=== PATIENT | male | born 1980 | race African-American/Black ===

== ENCOUNTER 2019-05-14 12:39 | Emergency (ER) | payer OTHER ==
[~2019-05-14] VITALS: Ht 190.5 cm; Wt 100.4 kg
--- NOTE | 2019-05-14 12:50 | NUR ---
BIB [facility] FEELING ANXIOUS S/P POSSIBLE DRUG USE. PATIENT ANXIOUS AND RESTLESS, ATTACHED TO THE CRM ADMINISTRATOR, SITTER AT BEDSIDE, SAFE ENVIRONMENT PROVIDED. NEEDS ATTENDED. WILL MONITOR
[2019-05-14] MEDS ORDERED: HALOPERIDOL LACTATE INJ 5 MG/ML VIAL IM ONE (13:00)
[2019-05-14] MEDS ORDERED: IV NS 0.9% 1,000 ML BAG IV ONE (13:00)
[2019-05-14] MEDS ORDERED: LORAZEPAM INJ 2 MG/ML VIAL IM ONE (13:00)
[2019-05-14] MEDS ORDERED: HALOPERIDOL LACTATE INJ 5 MG/ML VIAL ONE (13:16)
[2019-05-14] MEDS ORDERED: LORAZEPAM INJ 2 MG/ML VIAL ONE (13:17)
[2019-05-14 14:59] LABS: BASOPHILS % (AUTO) 0.3 % (0.0-2.0); EOSINOPHILS % (AUTO) 0.1 % (0.0-6.0); HEMATOCRIT 45 % (39-51); HEMOGLOBIN 15.2 g/dL (13.5-17.5); LYMPHOCYTES # (AUTO) 2.2 /CMM (0.8-4.8); LYMPHOCYTES % (AUTO) 23.6 % (20.0-44.0); MEAN CORPUSCULAR HGB CONC 34 g/dl (31.0-36.0); MEAN CORPUSCULAR VOLUME 86 fL (80-96); MONOCYTES # (AUTO) 1.4 /CMM (0.1-1.30); MONOCYTES % (AUTO) 15.4 % (2.0-12.0); NEUTROPHILS # (AUTO) 5.5 /CMM (1.8-8.9); NEUTROPHILS % (AUTO) 60.6 % (43.0-81.0); PLATELET COUNT (AUTO) 226 /CMM (150-450); RED BLOOD CELL COUNT(AUTO) 5.22 MIL/uL (4.5-6.0); WHITE BLOOD COUNT (AUTO) 9.1 K/uL (4.3-11.0)
[2019-05-14] MEDS ORDERED: IV D5 LR 1,000 ML IV ONE (15:00)
[2019-05-14] MEDS ORDERED: Thiamine 100 MG in IV D5W 50 ML IV SCH (15:00)
--- NOTE | 2019-05-14 15:00 | NUR ---
PATIENT CALM AND COOPERATIVE.
[2019-05-14 15:06] LABS: CALCIUM, SERUM 9.6 mg/dL (8.5-10.1); CARBON DIOXIDE 23 mmol/L (21-32); CHLORIDE 105 mmol/L (98-107); CREATININE 1.1 mg/dL (0.6-1.3); GLUCOSE 91 mg/dL (74-106); SODIUM SERUM 140 mmol/L (136-145); UREA NITROGEN, BLOOD 16 mg/dL (7-18)
[2019-05-14 15:12] LABS: ALANINE AMINOTRANSFERASE 27 U/L (12-78); ALBUMIN 4.2 g/dL (3.4-5.0); ALCOHOL, BLOOD < 3 mg/dL (0-0); ALKALINE PHOSPHATASE 68 U/L (46-116); ASPARTATE AMINOTRANSFERASE 28 U/L (15-37); BILIRUBIN,DIRECT 0.3 mg/dL (0.0-0.2); BILIRUBIN,TOTAL 1.2 mg/dL (0.2-1.0); TOTAL PROTEIN, SERUM 8.3 g/dL (6.4-8.2)
--- NOTE | 2019-05-14 15:30 | NUR ---
PATIENT REFUSED TO GIVE URINE AT THIS TIME. EXPLAINED RISKS AND BENEFITS.
[2019-05-14 17:50] VITALS: BP 100/60
--- NOTE | 2019-05-14 17:50 | NUR ---
PATIENT STATED HE FEELS BETTER, HE WANTS TO GO HOME. IV removed. Catheter intact and site benign. Pressure and 4x4 applied to site. No bleeding noted.
--- NOTE | 2019-05-14 18:05 | NUR ---
Patient ambulatory with a steady gait. IV removed. Catheter intact and site benign. Pressure and 4x4 applied to site. No bleeding noted.Patient discharged to sober living facility in stable condition. Written and verbal after care instructions given. Patient verbalizes understanding of instruction.
== END 2019-05-14 18:05 | disposition home or self-care (01) ==
LOC: ER 12:41
DX: R45.1 Restlessness and agitation (principal); T50.905A Adverse effect of unspecified drugs, medicaments and biological substances, initial encounter; R00.2 Palpitations; E86.0 Dehydration; F20.9 Schizophrenia, unspecified; F43.10 Post-traumatic stress disorder, unspecified; R00.0 Tachycardia, unspecified; F10.10 Alcohol abuse, uncomplicated; F17.210 Nicotine dependence, cigarettes, uncomplicated; F19.10 Other psychoactive substance abuse, uncomplicated; H57.04 Mydriasis; Y90.0 Blood alcohol level of less than 20 mg/100 ml; Y92.89 Other specified places as the place of occurrence of the external cause
CPT/HCPCS: 36415; 71045; 80048; 80076; 80307; 84484; 85025; 93005; 96361; 96365; 96372 ×2; 99284; 99406; J1630; J2060; J3411; J3490 ×2; J7030; J7060; G0480

== ENCOUNTER 2019-11-01 13:52 | Emergency (ER) | payer OTHER ==
[~2019-11-01] VITALS: Ht 180.3 cm; Wt 112.0 kg
--- NOTE | 2019-11-01 14:00 | NUR ---
PT PRESENTED TO THE ER WITH A C/O WORSENING LLQ ABD PAIN WITH N/V X 9 MONTHS. PT AMBULATED TO THE BATHROOM AND A URINE SAMPLE WAS OBTAINED. SAMPLE WAS SENT TO THE LAB. PT THEN AMBULATED TO ER 14 AND IS AWAITING EVAL BY .
--- NOTE | 2019-11-01 14:05 | NUR ---
PT STATED THAT HE IS HAVING BURNING AND SHARP PAIN IN LLQ OF ABD. PT STATED THAT HE WAS DX 9 MONTHS AGO WITH [facility] AND DID NOT TAKE THE ANTIBIOTIC HE WAS PRESCRIBED. PT IS WORRIED THAT HE HAS AN ULCER AND OCCASIONALLY OVER THE LAST 9 MONTHS HE STATED THAT HE HAD SOME BLOODY STOOLS. PT DOES NOT CURRENTLY HAVE BLOOD IN HIS STOOLS. PT IS REQUESTING A CT OF HIS ABD AND PAIN MEDICATION. PT HAS BP CUFF IN PLACE AND WILL CONTINUE TO BE MONITORED.
--- NOTE | 2019-11-01 14:30 | NUR ---
PT STATED THAT HE HAS BEEN SOBER FOR 90 DAYS AND IS CURRENTLY LIVING IN A SOBER LIVING FACILITY.
--- NOTE | 2019-11-01 14:34 | NUR ---
18G IV STARTED IN [facility]. BLOOD WAS DRAWN AND SENT TO LAB WITH [facility].
[2019-11-01 14:35] LABS: APPEARANCE,URINE Clear (CLEAR); BILIRUBIN,URINE Negative (NEGATIVE); BLOOD, URINE Negative Ery/uL (NEGATIVE); COLOR,URINE Yellow (YELLOW); KETONES,URINE Negative (NEGATIVE); LEUKOCYTE ESTERASE ,URINE Negative (NEGATIVE); NITRITE, URINE Negative (NEGATIVE); PH,URINE 7.5 (5.0-8.0); PROTEIN,URINE Negative (NEGATIVE); UGLUCOSE Negative (NEGATIVE); UROBILINOGEN,URINE 0.2 EU/dL (0.2)
[2019-11-01 14:37] LABS: BASOPHILS # (AUTO) 0.1 /CMM (0.0-0.2); BASOPHILS % (AUTO) 0.6 % (0.0-2.0); EOSINOPHILS % (AUTO) 1.1 % (0.0-6.0); HEMATOCRIT 46 % (39-51); HEMOGLOBIN 15.7 g/dL (13.5-17.5); MEAN CORPUSCULAR HGB CONC 34 g/dl (31.0-36.0); MEAN CORPUSCULAR VOLUME 85 fL (80-96); MONOCYTES % (AUTO) 11.2 % (2.0-12.0); NEUTROPHILS # (AUTO) 4.1 /CMM (1.8-8.9); NEUTROPHILS % (AUTO) 44.1 % (43.0-81.0); PLATELET COUNT (AUTO) 231 /CMM (150-450); RED BLOOD CELL COUNT(AUTO) 5.45 MIL/uL (4.5-6.0); WHITE BLOOD COUNT (AUTO) 9.3 K/uL (4.3-11.0)
[2019-11-01 14:45] LABS: CALCIUM, SERUM 9.7 mg/dL (8.5-10.1); POTASSIUM 4.1 mmol/L (3.5-5.1)
[2019-11-01 14:56] LABS: BILIRUBIN,DIRECT 0.1 mg/dL (0.0-0.2); BILIRUBIN,TOTAL 0.3 mg/dL (0.2-1.0); TOTAL PROTEIN, SERUM 7.8 g/dL (6.4-8.2)
[2019-11-01] MEDS ORDERED: KETOROLAC TROMETHAMINE 15 MG/ML VIAL ONE (15:10)
--- NOTE | 2019-11-01 15:17 | NUR ---
IV removed. Catheter intact and site benign. Pressure and 4x4 applied to site. No bleeding noted. Patient discharged to home in stable condition. Written and verbal after care instructions given. Patient verbalizes understanding of instruction AND RX. PT AMBULATED OUT WITH A STEADY GAIT. PT REC'D A COPY OF HIS LABS. VSS.
[2019-11-01 15:18] VITALS: BP 151/76
[2019-11-01] MEDS ORDERED: KETOROLAC TROMETHAMINE INJ 30 MG/ML VIAL IV ONE (15:30)
== END 2019-11-01 15:18 | disposition home or self-care (01) ==
LOC: ER 13:56
DX: G89.29 Other chronic pain (principal); R10.12 Left upper quadrant pain; R10.32 Left lower quadrant pain; F20.9 Schizophrenia, unspecified; F43.10 Post-traumatic stress disorder, unspecified; F17.200 Nicotine dependence, unspecified, uncomplicated; Z88.0 Allergy status to penicillin
CPT/HCPCS: 36415; 80048; 80076; 80305; 80307; 81001; 83690; 85025; 96374; 99283; J1885; 81000-TC; G0480

== ENCOUNTER 2019-11-06 14:27 | Emergency (ER) | payer OTHER ==
[~2019-11-06] VITALS: Ht 180.3 cm; Wt 108.9 kg
--- NOTE | 2019-11-06 14:30 | NUR ---
came in for c/o cough and congestion x 3 days, "it hurt's when i breath", to er bed 9, hooked to monitor, dr jones at bedside
[2019-11-06] MEDS ORDERED: IPRATROPIUM NEB FS 0.5 MG/2.5 ML AMPUL.NEB ONE (14:54)
[2019-11-06] MEDS ORDERED: ALBUTEROL FS 2.5 MG/3 ML VIAL.NEB ONE (14:54)
--- NOTE | 2019-11-06 14:55 | NUR ---
RT AT BEDSIDE FOR BREATHING TX
[2019-11-06] MEDS ORDERED: ALBUTEROL FS 2.5 MG/3 ML VIAL.NEB NEB ONE (15:00)
[2019-11-06] MEDS ORDERED: IPRATROPIUM NEB FS 0.5 MG/2.5 ML AMPUL.NEB NEB ONE (15:00)
[2019-11-06] MEDS ORDERED: predniSONE 20 MG TABLET ONE (15:10)
[2019-11-06] MEDS ORDERED: predniSONE 20 MG TABLET PO ONE (15:30)
--- NOTE | 2019-11-06 15:33 | NUR ---
Patient discharged to home in stable condition. Written and verbal after care instructions given. Patient verbalizes understanding of instruction.
[2019-11-06 15:35] VITALS: BP 151/99
== END 2019-11-06 15:35 | disposition home or self-care (01) ==
LOC: ER 14:27
DX: J45.901 Unspecified asthma with (acute) exacerbation (principal); F17.200 Nicotine dependence, unspecified, uncomplicated; I10 Essential (primary) hypertension; F20.9 Schizophrenia, unspecified; F43.10 Post-traumatic stress disorder, unspecified; Z88.0 Allergy status to penicillin
CPT/HCPCS: 71045; 94640; 99283; 99406; J7512

== ENCOUNTER 2019-11-29 16:58 | Emergency (ER) | payer OTHER ==
[~2019-11-29] VITALS: Ht 180.3 cm; Wt 112.5 kg
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
--- NOTE | 2019-11-29 17:40 | NUR ---
SEEN AND EVALUATED BY BARBRA DAY
[2019-11-29] MEDS ORDERED: HYDROCODONE/APAP 5/325MG TABLET ONE (17:47)
--- NOTE | 2019-11-29 17:51 | NUR ---
EMT I/85 AT BEDSIDE FOR XRAY.
--- NOTE | 2019-11-29 17:51 | NUR ---
ICE COMPRESS APPLIED.
[2019-11-29] MEDS ORDERED: HYDROCODONE/APAP 5/325MG TABLET PO ONE (18:00)
--- NOTE | 2019-11-29 18:34 | NUR ---
Applied splint on left index finger, Shabbir WASSERMAN at bedside explaining the fracture.
--- NOTE | 2019-11-29 18:45 | NUR ---
Patient discharged to home in stable condition. Written and verbal after care instructions given. Patient verbalizes understanding of instruction.
[2019-11-29 18:48] VITALS: BP 150/87
== END 2019-11-29 18:49 | disposition home or self-care (01) ==
LOC: ER 17:02
DX: S62.611A Displaced fracture of proximal phalanx of left index finger, initial encounter for closed fracture (principal); I10 Essential (primary) hypertension; Z88.0 Allergy status to penicillin; W20.8XXA Other cause of strike by thrown, projected or falling object, initial encounter; Y93.89 Activity, other specified; Y92.098 Other place in other non-institutional residence as the place of occurrence of the external cause; Y99.8 Other external cause status
CPT/HCPCS: 73130-TC

== ENCOUNTER 2019-12-05 15:19 | Emergency (ER) | payer OTHER ==
[~2019-12-05] VITALS: Ht 177.8 cm; Wt 97.5 kg
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
[2019-12-05] MEDS ORDERED: HYDROCODONE/APAP 5/325MG 1 EACH TABLET ONE (15:51)
[2019-12-05] MEDS ORDERED: HYDROCODONE/APAP 5/325MG 1 EACH TABLET PO ONE (16:00)
[2019-12-05 16:43] VITALS: BP 128/87
--- NOTE | 2019-12-05 16:43 | NUR ---
Patient discharged to home in stable condition. Written and verbal after care instructions given. Patient verbalizes understanding of instruction.
== END 2019-12-05 16:43 | disposition home or self-care (01) ==
LOC: ER 15:22
DX: S62.617A Displaced fracture of proximal phalanx of left little finger, initial encounter for closed fracture (principal); I10 Essential (primary) hypertension; F20.9 Schizophrenia, unspecified; F43.10 Post-traumatic stress disorder, unspecified; F17.200 Nicotine dependence, unspecified, uncomplicated; Z88.0 Allergy status to penicillin; W01.0XXA Fall on same level from slipping, tripping and stumbling without subsequent striking against object, initial encounter; Y93.89 Activity, other specified; Y92.89 Other specified places as the place of occurrence of the external cause; Y99.8 Other external cause status
CPT/HCPCS: 73130-TC

== ENCOUNTER 2019-12-16 10:34 | Emergency (ER) | payer OTHER ==
[~2019-12-16] VITALS: Ht 185.4 cm; Wt 113.4 kg
--- NOTE | 2019-12-16 10:41 | NUR ---
Came in for laceration to L thumb s/p fall in shower this morning, to ER 2, Dr dunn at bedside
[2019-12-16] MEDS ORDERED: TDAP [DIPH/PERTUSSIS/TET] 0.5 ML VIAL IM ONE ×2 (10:57→11:00)
--- NOTE | 2019-12-16 11:56 | NUR ---
Patient discharged to home in stable condition. Written and verbal after care instructions given. Patient verbalizes understanding of instruction.
[2019-12-16 11:58] VITALS: BP 142/68
== END 2019-12-16 12:02 | disposition home or self-care (01) ==
LOC: ER 10:34
DX: S62.311A Displaced fracture of base of second metacarpal bone, left hand, initial encounter for closed fracture (principal); S61.012A Laceration without foreign body of left thumb without damage to nail, initial encounter; I10 Essential (primary) hypertension; F20.9 Schizophrenia, unspecified; F43.10 Post-traumatic stress disorder, unspecified; F17.200 Nicotine dependence, unspecified, uncomplicated; Z88.0 Allergy status to penicillin; W18.39XA Other fall on same level, initial encounter; Y93.E1 Activity, personal bathing and showering; Y92.89 Other specified places as the place of occurrence of the external cause; Y99.8 Other external cause status
CPT/HCPCS: 29130; 73140 ×2; 90471; 90715; 99283; A6403

== ENCOUNTER 2023-09-27 17:53 | Emergency (ER) | payer OTHER ==
[~2023-09-27] VITALS: Ht 180.3 cm; Wt 99.8 kg
[2023-09-27] MEDS ORDERED: IV NS 0.9% 1,000 ML BAG IV ONE (19:30)
[2023-09-27] MEDS ORDERED: FAMOTIDINE/PF INJ 20 MG/2 ML VIAL IV ONE ×2 (19:30→19:37)
[2023-09-27] MEDS ORDERED: KETOROLAC TROMETHAMINE 15 MG/ML VIAL IV ONE (19:30)
[2023-09-27] MEDS ORDERED: MAG HYDROX/AL HYDROX/SIMETH 30 ML UDC PO ONE (19:30)
[2023-09-27] MEDS ORDERED: KETOROLAC TROMETHAMINE 15 MG/ML VIAL ONE (19:36)
[2023-09-27] MEDS ORDERED: MAG HYDROX/AL HYDROX/SIMETH 30 ML UDC ONE (19:37)
[2023-09-27 19:41] LABS: CALCIUM, SERUM 9.1 mg/dL (8.5-10.1); POTASSIUM 3.6 mmol/L (3.5-5.1)
[2023-09-27 19:45] LABS: APPEARANCE,URINE CLEAR (CLEAR); BILIRUBIN,URINE NEGATIVE (NEGATIVE); BLOOD, URINE NEGATIVE Ery/uL (NEGATIVE); COLOR,URINE YELLOW (YELLOW); KETONES,URINE NEGATIVE (NEGATIVE); LEUKOCYTE ESTERASE ,URINE NEGATIVE (NEGATIVE); NITRITE, URINE NEGATIVE (NEGATIVE); PH,URINE 6.5 (5.0-8.0); PROTEIN,URINE NEGATIVE (NEGATIVE); UGLUCOSE NEGATIVE (NEGATIVE)
[2023-09-27 19:47] LABS: ALBUMIN 3.9 g/dL (3.4-5.0); BASOPHILS % (AUTO) 0.2 % (0.0-2.0); BILIRUBIN,DIRECT 0.1 mg/dL (0.0-0.2); BILIRUBIN,TOTAL 0.3 mg/dL (0.2-1.0); EOSINOPHILS # (AUTO) 0.1 K/uL (0.0-0.7); EOSINOPHILS % (AUTO) 0.7 % (0.0-6.0); HEMATOCRIT 47 % (39-51); HEMOGLOBIN 15.7 g/dL (13.5-17.5); LYMPHOCYTES # (AUTO) 3.8 K/uL (0.8-4.8); LYMPHOCYTES % (AUTO) 46.7 % (20.0-44.0); MEAN CORPUSCULAR HEMOGLOBIN 29 PG (26.0-33.0); MEAN CORPUSCULAR HGB CONC 33 g/dl (31.0-36.0); MEAN CORPUSCULAR VOLUME 87 fL (80-96); MONOCYTES # (AUTO) 0.8 K/uL (0.1-1.30); MONOCYTES % (AUTO) 9.5 % (2.0-12.0); NEUTROPHILS # (AUTO) 3.5 K/uL (1.8-8.9); NEUTROPHILS % (AUTO) 42.9 % (43.0-81.0); PLATELET COUNT (AUTO) 229 K/uL (150-450); RED BLOOD CELL COUNT(AUTO) 5.39 MIL/uL (4.5-6.0); RED CELL DISTRIBUTION WIDTH 14.8 % (11.5-15.0); TOTAL PROTEIN, SERUM 7.9 g/dL (6.4-8.2); WHITE BLOOD COUNT (AUTO) 8.1 K/uL (4.3-11.0)
[2023-09-27] MEDS ORDERED: ONDA4TAB5 PO ×2 (20:13→20:33)
[2023-09-27] MEDS ORDERED: FAMO40TA7 PO ×2 (20:13→20:33)
[2023-09-27 20:36] VITALS: BP 128/80; TEMP 98; O2SAT 98
== END 2023-09-27 20:37 | disposition home or self-care (01) ==
LOC: ER 17:53
DX: R10.12 Left upper quadrant pain (principal); I10 Essential (primary) hypertension; F20.9 Schizophrenia, unspecified; Z87.442 Personal history of urinary calculi; Z88.0 Allergy status to penicillin
CPT/HCPCS: 99285; 74176; 96374; 96361; 96375; 85025; 80048; 83690; 80076; 81003; 36415; J3490; J7030 ×2; J1885

== ENCOUNTER 2023-10-06 14:27 | Emergency (ER) | payer OTHER ==
[~2023-10-06] VITALS: Ht 180.3 cm; Wt 99.8 kg
[~2023-10-06 14:27] MED LIST: FAMO40TA7 PO; ONDA4TAB5 PO
[2023-10-06] MEDS ORDERED: CYCLOBENZAPRINE 10 MG TABLET ONE (15:07)
[2023-10-06] MEDS ORDERED: HYDROCODONE/APAP 10/325MG TABLET ONE (15:07)
[2023-10-06] MEDS ORDERED: IBUPROFEN 400 MG TABLET ONE (15:08)
[2023-10-06] MEDS ORDERED: predniSONE 20 MG TABLET ONE (15:09)
[2023-10-06] MEDS: CYCLOBENZAPRINE 10 MG TABLET PO ONE (15:13)
[2023-10-06] MEDS: HYDROCODONE/APAP 10/325MG TABLET PO ONE (15:13)
[2023-10-06] MEDS: predniSONE 50 MG TABLET PO ONE (15:14)
[2023-10-06] MEDS: IBUPROFEN 400 MG TABLET PO ONE (15:14)
[2023-10-06] MEDS ORDERED: IBUP-1955 PO (15:22)
[2023-10-06] MEDS ORDERED: OXYC-128 PO (15:22)
[2023-10-06] MEDS ORDERED: CYCL10TA9 PO (15:22)
[2023-10-06] MEDS ORDERED: ALBU18HF2 INH (15:22)
[2023-10-06] MEDS ORDERED: PRED50TA PO (15:22)
[2023-10-06 15:28] VITALS: BP 133/91; TEMP 98.2; O2SAT 98
== END 2023-10-06 15:29 | disposition home or self-care (01) ==
LOC: ER 14:27
DX: M51.26 Other intervertebral disc displacement, lumbar region (principal); M62.838 Other muscle spasm; M79.605 Pain in left leg; F17.210 Nicotine dependence, cigarettes, uncomplicated; I10 Essential (primary) hypertension; F20.9 Schizophrenia, unspecified; Z88.0 Allergy status to penicillin
CPT/HCPCS: 99284; 99406; J7512

== ENCOUNTER 2023-10-12 17:15 | Emergency (ER) | payer OTHER ==
[~2023-10-12] VITALS: Ht 180.3 cm; Wt 102.1 kg
[~2023-10-12 17:15] MED LIST changes: +ALBU18HF2 INH; +CYCL10TA9 PO; +IBUP-1955 PO; +OXYC-128 PO; +PRED50TA PO
[2023-10-12] MEDS ORDERED: LIDOCAINE 2% 20 ML MDV ONE (21:11)
[2023-10-12] MEDS ORDERED: oxyCODONE/APAP (5/325 MG) 1 UDTAB TABLET ONE ×2 (21:16→22:06)
[2023-10-12] MEDS ORDERED: LIDOCAINE MPF 1%-EPI 1:200,000 30 ML VIAL IJ ONE (21:17)
[2023-10-12] MEDS: oxyCODONE/APAP (5/325 MG) 1 UDTAB TABLET PO ONE ×2 (21:17→22:09)
[2023-10-12] MEDS: LIDOCAINE HCL/PF 1% 30 ML VIAL IM ONE (21:17)
[2023-10-12] MEDS ORDERED: CLIN150C16 PO (22:12)
[2023-10-12] MEDS ORDERED: OXYC-133 PO (22:12)
[2023-10-12 23:54] VITALS: BP 147/78; TEMP 98.1; O2SAT 100
== END 2023-10-12 23:54 | disposition home or self-care (01) ==
LOC: ER 17:25
DX: S91.312A Laceration without foreign body, left foot, initial encounter (principal); I10 Essential (primary) hypertension; F20.9 Schizophrenia, unspecified; G89.29 Other chronic pain; Z88.0 Allergy status to penicillin; W25.XXXA Contact with sharp glass, initial encounter; Y93.89 Activity, other specified; Y92.89 Other specified places as the place of occurrence of the external cause; Y99.8 Other external cause status
CPT/HCPCS: 12004; 72131; 73610; 73630; 99284; A6403; J3490

== ENCOUNTER 2023-11-02 18:15 | Emergency (ER) | payer OTHER ==
[~2023-11-02] VITALS: Ht 180.3 cm; Wt 104.3 kg
[~2023-11-02 18:15] MED LIST changes: +CLIN150C16 PO; +OXYC-133 PO
[2023-11-02 18:26] VITALS: BP 141/102; TEMP 97.8
[2023-11-02] MEDS ORDERED: HYDROCODONE/APAP 5/325MG TABLET ONE (19:01)
[2023-11-02] MEDS: HYDROCODONE/APAP 5/325MG TABLET PO ONE (19:02)
[2023-11-02] MEDS ORDERED: KETO10TA2 PO (19:51)
[2023-11-02] MEDS ORDERED: HYDR-3980 PO (19:51)
[2023-11-02 20:00] VITALS: O2SAT 98
[2023-11-02] MEDS ORDERED: OXYC-133 PO (20:05)
== END 2023-11-02 20:00 | disposition home or self-care (01) ==
LOC: ER 18:17
DX: S62.617A Displaced fracture of proximal phalanx of left little finger, initial encounter for closed fracture (principal); I10 Essential (primary) hypertension; F20.9 Schizophrenia, unspecified; G89.29 Other chronic pain; Z88.0 Allergy status to penicillin; Z79.899 Other long term (current) drug therapy; W18.30XA Fall on same level, unspecified, initial encounter; Y93.89 Activity, other specified; Y92.89 Other specified places as the place of occurrence of the external cause; Y99.8 Other external cause status
CPT/HCPCS: 73130-TC

== ENCOUNTER 2023-11-10 09:45 | Emergency (ER) | payer OTHER ==
[~2023-11-10] VITALS: Ht 180.3 cm; Wt 102.1 kg
[~2023-11-10 09:45] MED LIST changes: +KETO10TA2 PO
[2023-11-10 09:55] VITALS: BP 151/105; TEMP 98.1; O2SAT 98
[2023-11-10] MEDS ORDERED: IBUPROFEN 400 MG TABLET ONE (11:46)
[2023-11-10] MEDS: IBUPROFEN 400 MG TABLET PO ONE (11:48)
== END 2023-11-10 12:26 | disposition home or self-care (01) ==
LOC: ER 09:49
DX: S62.616A Displaced fracture of proximal phalanx of right little finger, initial encounter for closed fracture (principal); I10 Essential (primary) hypertension; F20.9 Schizophrenia, unspecified; F17.200 Nicotine dependence, unspecified, uncomplicated; Z79.899 Other long term (current) drug therapy; Z88.0 Allergy status to penicillin; W01.0XXA Fall on same level from slipping, tripping and stumbling without subsequent striking against object, initial encounter; Y93.89 Activity, other specified; Y92.89 Other specified places as the place of occurrence of the external cause; Y99.8 Other external cause status
CPT/HCPCS: 73140-TC

== ENCOUNTER 2024-01-29 17:47 | Emergency (ER) | payer OTHER ==
[~2024-01-29] VITALS: Ht 177.8 cm; Wt 97.5 kg
[2024-01-29 18:33] VITALS: BP 144/81; TEMP 98; O2SAT 99
== END 2024-01-29 18:31 | disposition home or self-care (01) ==
LOC: ER 17:49
DX: M54.89 Other dorsalgia (principal); I10 Essential (primary) hypertension; F20.9 Schizophrenia, unspecified; F10.10 Alcohol abuse, uncomplicated; F17.200 Nicotine dependence, unspecified, uncomplicated; Z88.0 Allergy status to penicillin; Y90.9 Presence of alcohol in blood, level not specified

== ENCOUNTER 2024-02-08 17:05 | Emergency (ER) | payer OTHER ==
[~2024-02-08] VITALS: Ht 180.3 cm; Wt 95.3 kg
[2024-02-08 17:21] VITALS: BP 143/71; TEMP 98.7
[2024-02-08] MEDS ORDERED: oxyCODONE/APAP (5/325 MG) 1 UDTAB TABLET ONE (18:06)
[2024-02-08] MEDS ORDERED: LIDOCAINE 5% (PATCH) 1 EA PATCH TP ONE (18:06)
[2024-02-08] MEDS ORDERED: OXYC-133 PO (18:08)
[2024-02-08] MEDS: oxyCODONE/APAP (5/325 MG) 1 UDTAB TABLET PO ONE (18:09)
[2024-02-08] MEDS ORDERED: LIDO30AD10 TP (18:10)
[2024-02-08] MEDS: LIDOCAINE 5% (PATCH) 1 EA PATCH TP SCH (18:10)
[2024-02-08 18:15] VITALS: O2SAT 100
== END 2024-02-08 18:15 | disposition home or self-care (01) ==
LOC: ER 17:07
DX: M54.50 Low back pain, unspecified (principal); I10 Essential (primary) hypertension; G89.29 Other chronic pain; F20.9 Schizophrenia, unspecified; F17.200 Nicotine dependence, unspecified, uncomplicated; Z88.0 Allergy status to penicillin; Z79.899 Other long term (current) drug therapy